=== PATIENT | male | born 1970 | race African-American/Black ===

== ENCOUNTER 2018-10-24 17:25 | Inpatient (IN) ==
--- NOTE | 2018-10-24 19:51 | Internal Med History&Physical ---
<Miguel Angel Downey - Last Filed: 10/24/18 21:33> Date of Encounter: 10/24/18 Time of Encounter: 20:20 Internal Medicine - H&P: HPI Chief complaint: Weakness and tremor Admitted From: Hospital to Hospital Transfer Plans for Post Hospital Care: Home History of present illness: Mr. Lofton is a 48 year old male with history of anxiety, "frontal lobe damage" following accident, hypertension who presented to [facility] from [facility] due to 3 day history of weakness and tremors. The patient [place] while visiting a family members agreed and since that time has had a multitude of tremors, weakness in his lower and upper extremities, and nausea and vomiting. He also admits to diarrhea but occurring 6 or 7 times a day. He says that nothing like this has ever happened before. In addition this he is also had headaches. He has also had some palpitations in his chest. He denies chest pains. One of his most concerning symptoms is the intense tremors and muscle spasms he has encountered, which started after his initial fall. He says these are intermittent. He has also noted some edema in his lower extremities, and some erythema as well. He says that typically he does take medications including metoprolol, Valium, meclizine, and latuda however over the past several days he stopped taking them because he did not feel that he needed them anymore or at least did not need them right now. He says that the symptoms started after he stopped taking his medications. He has no other acute complaints at this time. Social Hx: The patient lives with his . He denies smoking. He admits to drinking once or twice a week and drinks about a pint of beer at a time. He denies other illicit drug use. He denies excessive caffeine use. He admits to significant anxiety. Surgical Hx: Noncontributory Family Hx: Mother with COPD At the ER in [facility], the patient had labs that demonstrated sodium 140, potassium 4.6, chloride 98, CO2 30, BUNs and 8, creatinine 0.9, glucose 97, AST 147, ALT 74, Magnesium 1.2. His CBC was essentially normal, and troponins were negative x2. He has a CT of the head which demonstrated no acute intracranial abnormality and a chest x-ray which was also negative. EKG from [facility] did demonstrate sinus tachycardia with a rate of 126 and left axis deviation with possible old anteroseptal infarct however was otherwise difficult to interpret due to significant artifact. The patient was transferred to [facility] for further workup and evaluation of fall and weakness. Past Med Surg Social Fam HX - Past Medical History Medical history: hypertension Psychiatric history: bipolar, depression, PTSD, schizophrenia - Past Surgical History Additional surgical history: TBI - Social History Smoking Status: Never smoker Alcohol use: occasionally Drug use: none - Family History Mother Hx Family Respiratory Disorders: Yes Internal Medicine - H&P: Meds Allergy/AdvReac Type Severity Reaction Status Date / Time No Known Drug Allergies Allergy See Verified 10/24/18 18:56 Comments All Systems PM: A 10-system review of systems was performed and is negative for pertinent findings except as documented above in the HPI. Review of systems: Constitutional: Denies fevers, chills, weight loss. Admits to generalized fatigue Head/Neck: Denies neck stiffness. Admits to headache EENT: Denies vision changes/blurriness, rhinorrhea, congestion, sore throat CVS: Denies chest pain, NIEVES, orthopnea, PND. Admits to edema and palpitations Pulm: Denies SOB, cough, sputum, hemoptysis, wheezing GI: Denies constipation, melena, hematemasis. Admits to abdominal pain, nausea, vomiting, diarrhea, : Denies dysuria, increased frequency, urgency, hematuria Heme: Denies ease of bleeding or bruising MSK: Denies joint pain, limited ROM Skin: Denies rashes, ulcers, color changes Neuro: Admits to MALLOY, paresthesias, focal deficits, ataxia. Psych: Admits to anxiety, nervousness - Constitutional Vitals: Temp Pulse Resp BP Pulse Ox 97.6 F 104 20 147/109 94 10/24/18 19:00 10/24/18 19:00 10/24/18 19:00 10/24/18 19:00 10/24/18 19:00 Exam: Gen: Vitals noted. No acute distress. Eyes: anicteric sclerae, moist conjunctivae; no lid-lag; Pupils equal and reactive to light HENT: Atraumatic; oropharynx clear with moist mucous membranes and no mucosal ulcerations; normal hard and soft palate Neck: Trachea midline; supple, no thyromegaly or lymphadenopathy Cardiac: RRR, no murmur, +S1/S2 Pulmonary: CTA bilaterally, no wheezes, rales or rhonchi, equal chest expansion Abdomen: soft, nontender, no guarding. No masses or hepatosplenomegaly MSK: ROM intact, no joint swelling noted Extremities: 1+ BLE edema, nontender calf, no cyanosis. Erythema noted in all four extremities b/l Skin: Normal temperature, turgor and texture; no rash, ulcers or subcutaneous nodules Neuro: moves all extremities, no focal deficits. Psych: Appears anxious. A&Ox3 Internal Med - H&P Results - Labs CBC & Chem 7: 10/24/18 20:39 - Assessment and Plan (1) Hypertensive urgency Current Visit: Yes Status: Acute Assessment and plan: Hypertensive urgency, likely secondary to discontinued medication Patient takes Metoprolol, Valium, Latuda, and Meclizine however he discontinued these without taper several days ago He says that all of his symptoms started after discontinuing his medications He did present to [facility] ED with systolic blood pressure greater than 220, arrived at [facility] with systolic blood pressure 180 I suspect that his accelerated hypertension is largely a result of anxiety and medication noncompliance At this time, I do not intend to start IV medication to control blood pressure Instead, I will control anxiety with Ativan, start home metoprolol dose Continue to monitor closely, goal to reduce blood pressure by 20% Cardiac monitoring (2) Fall Current Visit: Yes Status: Acute Assessment and plan: Fall, likely secondary to accelerated hypertension which is symptomatic and electrolyte abnormalities The patient does say that he is having weakness in all 4 extremities Physical exam does not appear that significant at this time CT of his head at [facility] showed no intracranial abnormality I will get a PT and OT consult We will continue with neuro checks Replace loculated abnormality Qualifiers: Encounter type: initial encounter Qualified Code(s): W19.XXXA - Unspecified fall, initial encounter (3) Nonadherence to medication Current Visit: Yes Status: Acute Assessment and plan: Patient is been noncompliant with beta ghislaine and psychiatric medications We will restart metoprolol and Ativan today Reconcile other meds and likely restart tomorrow (4) Anxiety Current Visit: Yes Status: Acute Assessment and plan: Anxiety which appears to be severe Patient does have tremors and other panic symptoms I have started patient on CIWA protocol due to concern for possible alcohol use, but also to treat benzo withdrawal [facility] to monitor (5) Hypomagnesemia Current Visit: Yes Status: Acute Assessment and plan: Magnesium found to be 1.2 at [facility] We will repeat this lab here, give 4 g IV magnesium sulfate (6) EKG abnormalities Current Visit: Yes Status: Acute Assessment and plan: EKG shows sinus tachycardia with Left axis deviation, mildly prolonged QRS suggestive of early interventricular conduction delay and poor R wave progression. Troponin is negative x3 Will check echo in AM (7) Weakness Current Visit: Yes Status: Acute Assessment and plan: Weakness, possibly secondary to medication withdrawal + elevated BP PT/OT consult - Time Spent With Patient Total time spent is greater than 50% in coordination of care (as documented) at patient's floor/unit and/or counseling patient: <Tank Donato - Last Filed: 10/24/18 22:30> Date of Encounter: 10/24/18 Time of Encounter: 21:15 - Constitutional Constitutional: falls, weakness, no chills, no fever(s) - EENT Eyes: no blurry vision, no change in vision Ears: no ear pain, no tinnitus Nose, mouth and throat: no nasal congestion, no sore throat - Cardiovascular Cardiovascular ROS IM: palpitations, no chest pain, no lightheadedness, no syncope - Respiratory Respiratory: no cough, no chest congestion - Gastrointestinal Gastrointestinal: diarrhea, no hematemesis, no hematochezia, no melena, no nausea, no vomiting - Genitourinary Genitourinary ROS male: no dysuria, no flank pain, no hematuria - Musculoskeletal Musculoskeletal ROS IM: no arthralgias, no back pain - Integumentary Integumentary IM: no rash, no jaundice - Neurological Neurological ROS: tremor(s), no convulsions, no disequilibrium, no dizziness, no focal weakness, no frequent falls, no headache(s) - Psychiatric Psychiatric: anxiety, depression - Endocrine Endocrine IM: no polydipsia, no polyphagia, no polyuria - Constitutional Vitals: Temp Pulse Resp BP Pulse Ox 97.6 F 109 20 156/108 93 10/24/18 19:00 10/24/18 21:00 10/24/18 21:00 10/24/18 21:00 10/24/18 21:00 General appearance: Present: cooperative, A&O X 3, pleasant Exam: anxious, nervous, no acute distress otherwise - Head Head exam: Present: normal inspection - Eye Eye exam: Present: EOMI, PERRL. Absent: scleral icterus Pupils: Present: normal accommodation - ENT ENT exam: Present: mucous membranes dry, normal exam - Neck Neck exam general surgery: Present: full ROM, supple, trachea midline. Absent: tenderness, nuchal rigidity, thyromegaly - Respiratory Respiratory exam: Present: CTAB. Absent: rales, rhonchi, wheezes - Cardiovascular Cardiovascular exam: Present: RRR, +S1, +S2, systolic murmur (grade 1), tachycardia. Absent: diastolic murmur - GI/Abdominal GI/Abdominal exam: Present: normal bowel sounds, soft. Absent: guarding, hepatomegaly, mass, rebound, splenomegaly, tenderness - Extremities Exam Extremities exam: Present: full ROM, normal capillary refill, warm, radial pulses palpable and symmetrical. Absent: calf tenderness, pedal edema, tenderness - Back Exam Back exam: Absent: CVA tenderness (L), CVA tenderness (R) - Neurological Exam Neurological exam: Present: alert, CN II-XII intact, oriented X3, no focal deficits, strengths equal and symetr throughout Additional comments: anxious, nervous, mildly tremulous - Psychiatric Psychiatric exam: Present: anxious - Skin Skin exam: Present: dry, intact, warm Internal Med - H&P Results - Labs CBC & Chem 7: 10/24/18 20:39 Labs: BMP 10/24/18 20:39 Sodium 135 L Potassium 3.7 Chloride 95 L Carbon Dioxide 28 BUN 9 Creatinine 0.92 Glucose 98 Calcium 8.6 Cardiac Enzymes 10/24/18 Range/Units 20:39 Troponin I 0.03 (< 0.04) ng/mL Liver Function 10/24/18 Range/Units 20:39 Total Bilirubin 1.2 H (0.3-1.0) mg/dL AST 113 H (13-39) Units/L ALT 49 (7-52) Units/L Alkaline Phosphatase 36 (34-104) Units/L Albumin 3.9 (3.5-5.7) g/dL - Time Spent With Patient Total time spent is greater than 50% in coordination of care (as documented) at patient's floor/unit and/or counseling patient: - Attending Attestation I discussed the patient CURYUNG, past medical history, review of systems, lab data, imaging data, and exam findings with Dr. Downey. I then saw and examined patient independently in ICU as well. Patient blood pressure remains elevated but better controlled at the present time. He is mildly anxious, tremulous, and tachycardic. He admits noncompliance with his medications. He states he drinks alcohol but a minimal amount and roughly only on weekends. However, I agree that he may be downplaying his alcohol intake quite a bit and may be exhibiting some signs of alcohol withdrawal as well. As such, we will monitor him on the CIWA protocol and use Ativan on a when necessary basis. I agree with resuming his beta ghislaine and monitoring his hemodynamics closely. If his blood pressure becomes uncontrollable again, we will need to resume his nicardipine drip. His EKG does show significant left axis deviation and poor R-wave progression anteriorly. As such, I suspect he has some underlying coronary disease for which he will need outpatient workup. I would obtain an echocardiogram in the morning, however, to assess LV function, evaluate for any wall motion abnormality, and to rule out any LVH. Of note, his thyroid panel and urine drug screen were negative at [facility] except positive UDS for benzodiazepine. Other than my comments above and documented exam findings, I agree with Dr. Downey's assessment and plan.
[2018-10-24] MEDS ORDERED: Naloxone 0.4 MG/ML INJ IVP PRN (20:17)
[2018-10-24] MEDS ORDERED: Ondansetron 4 MG/2 ML VIAL IVP PRN ×2 (20:17→20:26)
[2018-10-24] MEDS ORDERED: Magnesium Sulfate 4 GM in 0.9 % Sodium Chloride 100 ML IVPB ONE (20:20)
[2018-10-24] MEDS ORDERED: *HR* LORazepam 2 MG/ML VIAL IVP PRN ×4 (20:24→20:58)
[2018-10-24] MEDS: *HR* Heparin 5,000 UNIT/ML VIAL SQ SCH (20:55)
[2018-10-24 20:59] LABS: INR 1.2
[2018-10-24 21:13] LABS: Alanine Aminotransferase 49 Units/L (7-52); Albumin 3.9 g/dL (3.5-5.7); Albumin/Globulin Ratio 1.1 (1.1-2.2); Alkaline Phosphatase 36 Units/L (34-104); Aspartate Amino Transferase 113 Units/L (13-39); BUN/Creatinine Ratio 10 (6-26); Bilirubin,Total 1.2 mg/dL (0.3-1.0); Blood Urea Nitrogen 9 mg/dL (6-20); Calcium 8.6 mg/dL (8.6-10.3); Carbon Dioxide 28 mEq/L (23-29); Chloride 95 mEq/L (98-107); Chol/HDL Ratio 2.1 (0-4.9); Cholesterol 185 mg/dL (< 200); Globulin 3.7 g/dL (2.4-3.5); Glucose 98 mg/dL (70-105); HDL Cholesterol 87 mg/dL (40-59); LDL Cholesterol,Calculated 77 mg/dL (0-99); Magnesium 1.4 mg/dL (1.6-2.6); Osmolality,Calculated 279 (280-300); Phosphorous 3.6 mg/dL (2.7-4.5); Potassium 3.7 mEq/L (3.5-5.1); Sodium 135 mEq/L (136-145); Total Protein 7.6 g/dL (6.4-8.9); Triglycerides 103 mg/dL (< 150); Troponin I 0.03 ng/mL (< 0.04); eGFR For African Americans > 60 (> 60); eGFR For Non-African Americans > 60 (> 60)
[2018-10-25 05:47] LABS: Basophils % 0.5 %; Eosinophils # 0.2 K/mcL (0.0-0.6); Eosinophils % 3.8 %; Hematocrit 43.4 % (37.5-50.1); Hemoglobin 14.6 g/dL (12.9-16.9); Immature Granulocytes % 0.2 % (0-4); Lymphocytes # 0.9 K/mcL (0.6-4.6); Lymphocytes % 16.5 %; Mean Corpuscular HGB Conc 33.6 g/dL (31.6-35.5); Mean Corpuscular Hemoglobin 32.1 pg (28.0-33.3); Mean Corpuscular Volume 95.4 fL (83.0-100.0); Mean Platelet Volume 10.3 fL (9.4-12.4); Monocytes # 0.6 K/mcL (0.0-1.3); Monocytes % 10.4 %; Neutrophils # 3.8 K/mcL (1.6-8.9); Platelet Count 213 K/mcL (140-400); Red Blood Count 4.55 M/mcL (4.19-5.50); Red Cell Distribution Width 13.3 % (11.5-14.5); Segmented Neutrophils % 68.6 %; White Blood Count 5.5 K/mcL (4.3-11.1)
[2018-10-25 06:11] LABS: BUN/Creatinine Ratio 9 (6-26); Blood Urea Nitrogen 9 mg/dL (6-20); Calcium 8.8 mg/dL (8.6-10.3); Carbon Dioxide 29 mEq/L (23-29); Chloride 94 mEq/L (98-107); Glucose 122 mg/dL (70-105); Osmolality,Calculated 280 (280-300); Potassium 3.4 mEq/L (3.5-5.1); Sodium 135 mEq/L (136-145); eGFR For African Americans > 60 (> 60); eGFR For Non-African Americans > 60 (> 60)
[2018-10-25] MEDS: *HR* Heparin 5,000 UNIT/ML VIAL SQ SCH (06:14)
[2018-10-25] MEDS ORDERED: Ondansetron 4 MG/2 ML VIAL IVP PRN (06:27)
[2018-10-25] MEDS ORDERED: *HR* LORazepam 2 MG/ML VIAL IVP PRN ×3 (06:27)
[2018-10-25] MEDS ORDERED: Naloxone 0.4 MG/ML INJ IVP PRN (06:27)
[2018-10-25] MEDS ORDERED: Perflutren Lipid Microsphere 1.3 ML in 0.9 % Sodium Chloride 8.7 ML IVP ONE (07:33)
[2018-10-25] MEDS ORDERED: *HR* Metoprolol 5 MG/5 ML VIAL IVP PRN (08:14)
--- NOTE | 2018-10-25 08:16 | Internal Med Progress Note ---
Hospitalist Progress Note - Encounter Date of Encounter: 10/25/18 Time of Encounter: 08:30 - Subjective Interval History: Patient seen examined at bedside he is alongside his . He is sitting up in no acute distress. He feels completely back to normal. He denies chest pain, shortness of breath, palpitations, nausea, weakness, dizziness, tremors. He is requesting be discharged today. However he was told that his blood pressure is too high a needs to be under better control. Nurse alerted me that the patient was saying he wanted to leave AMA. - Exam Vitals: Temp Pulse Resp BP Pulse Ox 97.3 F L 96 16 177/105 93 10/25/18 04:44 10/25/18 06:00 10/25/18 06:00 10/25/18 06:00 10/25/18 06:00 Exam: Gen.: Vitals noted. No acute distress. AAOx3, morbidly obese middle-aged male HEENT: oropharynx clear, Normocephalic, atraumatic Cardiac: RRR, no murmur, +S1/S2 Pulmonary: CTA bilaterally, no wheezes, rales or rhonchi, equal chest expansion Abdomen: soft, nontender, Bowel sounds noted, no guarding MSK: ROM intact, no joint swelling noted Extremities: no BLE edema, nontender calf, no cyanosis or clubbing Neuro: A&Ox3, moves all extremities, no focal deficits Psych: Appropriate mood and behavior - Time Spent with Patient Total time spent is greater than 50% in coordination of care (as documented) at patient's floor/unit and/or counseling patient: Internal Medicine: Result - Labs CBC & Chem 7: 10/25/18 05:22 10/25/18 05:22 Labs: Short CBC 10/25/18 Range/Units 05:22 WBC 5.5 (4.3-11.1) K/mcL Hgb 14.6 (12.9-16.9) g/dL Hct 43.4 (37.5-50.1) % Plt Count 213 (140-400) K/mcL Neutrophils # 3.8 (1.6-8.9) K/mcL BMP 10/24/18 10/25/18 20:39 05:22 Sodium 135 L 135 L Potassium 3.7 3.4 L Chloride 95 L 94 L Carbon Dioxide 28 29 BUN 9 9 Creatinine 0.92 0.96 Glucose 98 122 H Calcium 8.6 8.8 Cardiac Enzymes 10/24/18 Range/Units 20:39 Troponin I 0.03 (< 0.04) ng/mL Liver Function 10/24/18 Range/Units 20:39 Total Bilirubin 1.2 H (0.3-1.0) mg/dL AST 113 H (13-39) Units/L ALT 49 (7-52) Units/L Alkaline Phosphatase 36 (34-104) Units/L Albumin 3.9 (3.5-5.7) g/dL - ABG Interpretation ABG results: PT/INR, D-dimer PT 14.0 Seconds (9.4-12.1) H 10/24/18 20:39 Consult Discharge Plan - Plan Referrals: NONE,PCP [Primary Care Provider] -
[2018-10-25] MEDS ORDERED: Vitamin B Complex/Vit C/Vit E 1 EACH TABLET PO SCH ×2 (09:00)
[2018-10-25] MEDS ORDERED: Metoprolol XL (24 HR) Succ 25 MG TAB.ER.24H PO SCH ×2 (09:00)
[2018-10-25] MEDS ORDERED: Thiamine (B-1) 100 MG TABLET PO SCH ×2 (09:00)
[2018-10-25] MEDS ORDERED: Folic Acid 1 MG TABLET PO SCH ×2 (09:00)
[2018-10-25] MEDS ORDERED: *HR* Heparin 5,000 UNIT/ML VIAL ONE (11:25)
[2018-10-25] MEDS: *HR* Metoprolol 5 MG/5 ML VIAL IVP PRN ×2 (11:34→13:32)
[2018-10-25] MEDS ORDERED: diazePAM 5 MG TABLET PO PRN (12:14)
[2018-10-25] MEDS ORDERED: *HR* Heparin 5,000 UNIT/ML VIAL SQ SCH (14:00)
[2018-10-25 14:29] VITALS: BP 153/103
[2018-10-25] MEDS ORDERED: hydrALAZINE 10 MG TABLET PO PRN (14:31)
--- NOTE | 2018-10-25 15:27 | Discharge Summary ---
<Corie Ernandez - Last Filed: 10/25/18 15:25> - NOTES TO OUTPATIENT PROVIDER Notes to Outpatient Provider: Patient presented with palpitations, weakness, tremor and elevated blood pressure. Likely multifactorial from medication withdrawal and hypertensive urgency concerning for emergency. The patient left AMA. Date of Encounter: 10/25/18 Time of Encounter: 15:25 - Discharge Diagnosis (1) Hypertensive urgency Priority: Primary Status: Acute (2) Hypomagnesemia Priority: Secondary Status: Acute (3) Anxiety Priority: Secondary Status: Acute (4) Nonadherence to medication Priority: Secondary Status: Acute (5) EKG abnormalities Priority: Secondary Status: Acute (6) Fall Priority: Secondary Status: Acute Qualifiers: Encounter type: initial encounter Qualified Code(s): W19.XXXA - Unspecified fall, initial encounter (7) Weakness Priority: Secondary Status: Acute Hospital course: Mr. Lofton is a 48 year old male with past medical history of anxiety, reported TBI following accident, hypertension, depression, hypertension who presented from [facility] due to 3 days of weakness and tremors. He stated that he stopped taking his medication several days ago and that 3 days [place] For the past few days he is had tremors in his body, weakness and his upper and lower extremities, nausea, vomiting, diarrhea, palpitations, headache. He has never had anything like this before. He is never suddenly stopped his medications before either. He denied chest pain, shortness of breath, fever, chills. He stated he is supposed to take metoprolol, Valium, meclizine, latuda. At the ER in [facility], the patient had labs that demonstrated sodium 140, potassium 4.6, chloride 98, CO2 30, BUNs and 8, creatinine 0.9, glucose 97, AST 147, ALT 74, Magnesium 1.2. His CBC was essentially normal, and troponins were negative x2. He has a CT of the head which demonstrated no acute intracranial abnormality and a chest x-ray which was also negative. EKG from [facility] did demonstrate sinus tachycardia with a rate of 126 and left axis deviation with possible old anteroseptal infarct however was otherwise difficult to interpret due to significant artifact. While admitted the patient was noted to have blood pressure 165/107. He was given Toprol 25. He has had PRN medications for blood pressure. TTE: EF 50 to 55%, mild diastolic dysfunction. No significant valvular dysfunction. Technically challenging due to body habitus. On examination the patient sy mptoms had completely resolved and he was asymptomatic. His was consistently at the bedside. Blood pressure had improved but then increased again. In the morning on initial exam the patient stated that he would like to leave AMA however he was convinced to stay due to his significant hypertension. Later on during the day the patient was adamant that he was leaving AMA. He was alert and oriented times 3 and had full capacity. His was still at the bedside. He was told that the risk of leaving were stroke, myocardial infarction, . He was still being worked up due to potential medication withdrawal as his symptoms were likely multifactorial from hypertensive urgency that may be emergency as well. He stated clear understanding. The patient then signed paperwork to leave AMA and left the hospital. Discharge discussed with: patient, family, nurse - Time Spent with Patient Total time spent providing and/or coordinating discharge services: - Discharge Medications Prescriptions: Continued Meclizine [Antivert] 12.5 mg PO BID diazePAM [Valium] 10 mg PO TID Metoprolol XL (24 HR) Succ [Toprol Xl] 25 mg PO BID Lurasidone HCl [Latuda] 80 mg PO DAILY Home Medications: Lurasidone HCl [Latuda] 80 mg PO DAILY 10/25/18 [History] Meclizine [Antivert] 12.5 mg PO BID 10/25/18 [History] Metoprolol XL (24 HR) Succ [Toprol Xl] 25 mg PO BID 10/25/18 [History] diazePAM [Valium] 10 mg PO TID 10/25/18 [History] Allergies/Adverse Reactions: Allergy/AdvReac Type Severity Reaction Status Date / Time No Known Drug Allergies Allergy See Verified 10/25/18 13:36 Comments Date of admission: 10/24/18 18:38 Primary care physician: PCP NONE Consults: 10/24/18 21:05 Consult to Physical Therapy [CONS] Routine Comment: Evaluate, develop and implement POC Reason for Consult: weakness/fall Does patient have active BEDREST order?: No Is patient medically & hemodynamically stable?: Yes OT [Consult to Occupational Therapy] [CONS] Routine Comment: Evaluate, develop and implement POC Reason for Consult: weakness/fall Does patient have active BEDREST order?: No Is patient medically & hemodynamically stable?: Yes Discharging clinician: Margoth Ramirez Anticipated date of discharge: 10/25/18 - Constitutional Vitals: Temp Pulse Resp BP Pulse Ox 97.7 F 85 17 153/103 90 10/25/18 10:58 10/25/18 10:58 10/25/18 10:58 10/25/18 14:29 10/25/18 10:58 General appearance: Present: cooperative, A&O X 3, pleasant Exam: Gen.: Vitals noted. No acute distress. AAOx3, morbidly obese middle-aged male HEENT: oropharynx clear, Normocephalic, atraumatic Cardiac: RRR, no murmur, +S1/S2 Pulmonary: CTA bilaterally, no wheezes, rales or rhonchi, equal chest expansion Abdomen: soft, nontender, Bowel sounds noted, no guarding MSK: ROM intact, no joint swelling noted Extremities: no BLE edema, nontender calf, no cyanosis or clubbing Neuro: A&Ox3, moves all extremities, no focal deficits Psych: Appropriate mood and behavior - Patient Status Disposition: Left Against Medical Advice Condition: Serious Functional capacity at discharge: independent ambulation Overall status at discharge: patient is not back to baseline - Discharge Instructions Follow Up With: NONE,PCP [Primary Care Provider] - - Diet and Activity Activity: resume usual activities as tolerated Diet: low salt diet <Margoth Ramirez - Last Filed: 10/25/18 18:36> Date of Encounter: 10/25/18 - Discharge Diagnosis (1) Hypertensive urgency Status: Acute (2) Hypomagnesemia Status: Acute (3) Anxiety Status: Acute (4) Nonadherence to medication Status: Acute (5) EKG abnormalities Status: Acute (6) Fall Status: Acute Qualifiers: Encounter type: initial encounter Qualified Code(s): W19.XXXA - Unspecified fall, initial encounter (7) Weakness Status: Acute Hospital course: Mr. Lofton is a 48 year old male - Time Spent with Patient Total time spent providing and/or coordinating discharge services: Date of admission: 10/24/18 18:38 Primary care physician: PCP NONE Consults: 10/24/18 21:05 Consult to Physical Therapy [CONS] Routine Comment: Evaluate, develop and implement POC Reason for Consult: weakness/fall Does patient have active BEDREST order?: No Is patient medically & hemodynamically stable?: Yes OT [Consult to Occupational Therapy] [CONS] Routine Comment: Evaluate, develop and implement POC Reason for Consult: weakness/fall Does patient have active BEDREST order?: No Is patient medically & hemodynamically stable?: Yes - Constitutional Vitals: Temp Pulse Resp BP Pulse Ox 97.7 F 85 17 153/103 90 10/25/18 10:58 10/25/18 10:58 10/25/18 10:58 10/25/18 14:29 10/25/18 10:58
--- NOTE | 2018-10-26 14:26 | Electrocardiograph Report ---
[address] [place], [place] [address] Test Date: 2018-10-24 Pat Name: Sheryl Lofton Department: 109 Room: [facility] Gender: M [employer] Operator: : 1970 Requested By: Miguel Angel Downey Order Number: [id number] Reading MD: Abhay Suero Measurements Intervals [place] Rate: 101 P: 49 AL: 167 QRS: -36 QRSD: 100 T: 19 QT: 377 QTc: 435 Interpretive Statements SINUS TACHYCARDIA MARKED LEFT AXIS DEVIATION POSSIBLE ANTERIOR MYOCARDIAL INFARCTION, OF INDETERMINATE AGE Electronically Signed On 10-26-2018 14:24:52 EDT by Abhay Suero
== END 2018-10-25 15:31 | disposition left against medical advice (07) | DRG 305 ==
LOC: ICNU 18:38 → 2ANU 10-25 10:40
PROVIDERS: ADMIT Internal Medicine Nephrology; ATTEND Internal Medicine Nephrology